=== PATIENT | female | born 2000 | race Caucasian/White ===

== ENCOUNTER 2021-05-14 17:47 | Emergency (ER) | payer MEDICAID ==
[~2021-05-14] VITALS: Ht 172.7 cm; Wt 63.0 kg
[2021-05-14] MEDS ORDERED: ACETAMINOPHEN 325MG TABLET PO ONE (18:15)
[2021-05-14 19:26] LABS: HEMATOCRIT. 44.4 % (36.0-48.0); HEMOGLOBIN. 14.8 g/dL (12.0-16.0); MEAN CORPUSCULAR VOLUME 86.8 fL (81.0-99.0); MEAN PLATELET VOLUME 8.9 fl (7.4-10.4); PLATELET 243 x1000/uL (130-400); RED BLOOD CELL COUNT 5.12 mill/uL (4.2-5.4)
[2021-05-14 19:33] LABS: CHLORIDE 106 mEq/L (98-107)
[2021-05-14 19:40] LABS: C REACTIVE PROTEIN QUANT 5.4 mg/L (0.0-3.0)
[2021-05-14 20:06] LABS: CLARITY URINE CLEAR (CLEAR); COLOR URINE DARK YELLOW (YELLOW); KETONES URINE 4+ (NEGATIVE); LEUKOCYTE ESTERASE URINE NEGATIVE (NEGATIVE); NITRITE URINE NEGATIVE (NEGATIVE); OCCULT BLOOD URINE TRACE (NEGATIVE); PROTEIN URINE TRACE (NEGATIVE); SPECIFIC GRAVITY URINE 1.036 (1.005-1.030)
[2021-05-14 22:00] VITALS: BP 100/60
[2021-05-14] MEDS ORDERED: KETOROLAC 15MG/ML VIAL IV ONE (22:15)
[2021-05-14 22:38] LABS: PLATELET ESTIMATE NORMAL
[2021-05-14] MEDS ORDERED: NAPR-1176 MT (23:25)
== END 2021-05-14 23:45 | disposition home or self-care (01) ==
LOC: ER 17:47
DX: U07.1 COVID-19 (principal); M50.31 Other cervical disc degeneration, high cervical region
CPT/HCPCS: 36415; 72141; 72146; 72148; 80053; 81003; 81025; 84145; 85025; 86140; 87426; 87804; 96374; 99284; J1885; Z7610